=== PATIENT | female | born 2005 | race Caucasian/White ===

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

== ENCOUNTER 2023-01-24 23:26 | Emergency (ER) | payer MEDICAID, OTHER ==
[~2023-01-24] VITALS: Ht 160 cm; Wt 83.0 kg
[2023-01-24 23:26] VITALS: BP 152/87
[~2023-01-24 23:26] MED LIST changes: +BUSP5TA PO; +SERT50TA29 PO; +TRAZ-252 PO
== END 2023-01-25 00:06 | disposition left against medical advice (07) ==
LOC: M ED 23:26
DX: Z53.21 Procedure and treatment not carried out due to patient leaving prior to being seen by health care provider (principal)

== ENCOUNTER 2023-01-26 17:20 | Emergency (ER) | payer OTHER ==
[~2023-01-26] VITALS: Ht 160 cm; Wt 81.4 kg
[2023-01-26] MEDS ORDERED: METOCLOPRAMIDE INJ 10MG/2ML VIAL IV ONE (18:25)
[2023-01-26] MEDS ORDERED: NS 1,000 ML IV ONE (18:25)
[2023-01-26 19:29] LABS: BASO % 0.2 % (0.0-1.0); EOS % 0.1 % (0.0-3.0); LYMPH # 1.5 10^3/uL (1.5-5.0); LYMPH % 7.4 % (24.0-44.0); MEAN CORPUSCULAR HEMOGLOBIN 28.2 pg (27.0-33.0); MEAN CORPUSCULAR HGB CONC 33.3 g/dl (32.0-36.5); MEAN CORPUSCULAR VOLUME 84.7 fl (80.0-96.0); MONO # 0.9 10^3/uL (0.0-0.8); MONO % 4.7 % (2.0-8.0); NEUTROPHILS # 17.2 10^3/uL (1.5-8.5); NEUTROPHILS % 87.1 % (36.0-66.0); PLATELET COUNT, AUTOMATED 297 10^3/uL (150-450); RED BLOOD COUNT 4.25 10^6/uL (4.00-5.40); WHITE BLOOD COUNT 19.7 10^3/uL (4.0-10.0)
[2023-01-26 20:20] LABS: HCG, SERUM QUANTITATIVE < 2.6 MIU/ML (<4.2)
[2023-01-26 20:21] LABS: ALBUMIN 3.1 G/DL (3.2-5.2); ALKALINE PHOSPHATASE 112 U/L (46-116); ALT/SGPT 22 U/L (7.0-40); AST/SGOT 15 U/L (<34); BILIRUBIN,DIRECT 0.2 MG/DL (<0.4); BILIRUBIN,TOTAL 0.3 MG/DL (0.3-1.2); BLOOD UREA NITROGEN 6 MG/DL (9-23); CALCIUM LEVEL 8.7 MG/DL (8.5-10.1); CARBON DIOXIDE LEVEL 23 MMOL/L (20-31); CHLORIDE LEVEL 102 MMOL/L (98-107); CREATININE FOR GFR 0.65 MG/DL (0.55-1.30); GLUCOSE, FASTING 78 MG/DL (60-100); LIPASE 19 U/L (12-53); POTASSIUM SERUM 3.5 MMOL/L (3.5-5.1); SODIUM LEVEL 137 MMOL/L (136-145); TOTAL PROTEIN 6.8 G/DL (5.7-8.2)
[2023-01-26 20:34] LABS: RSV AMPLIFICATION NEGATIVE (NEGATIVE)
[2023-01-26] MEDS ORDERED: ISOVUE-370 76% 100ML VIAL As Ordered ONE (21:02)
[2023-01-26 21:24] LABS: GC DNA AMPLIFICATION NEGATIVE (NEGATIVE)
[2023-01-26 22:01] VITALS: BP 132/66
== END 2023-01-26 22:33 | disposition home or self-care (01) ==
LOC: M ED 17:20
DX: J18.9 Pneumonia, unspecified organism (principal); N39.0 Urinary tract infection, site not specified; F41.9 Anxiety disorder, unspecified; F32.9 Major depressive disorder, single episode, unspecified; Z79.899 Other long term (current) drug therapy
CPT/HCPCS: 71046; 74177; 76801; 76817; 80048; 80076; 81001; 83605; 83690; 84702; 85025; 87040; 87086; 87631; 87810; 87850; 93976; 96361; 96374; 99284; J2765; Q9967

== ENCOUNTER → 2023-03-09 | Outpatient (REF) | payer OTHER | LOC: M LAB REF 15:25 | PROVIDERS: ATTEND Pediatrics | DX: J02.9 Acute pharyngitis, unspecified (principal) ==

== ENCOUNTER → 2023-08-27 | Outpatient (REF) | payer OTHER ==
[~2023-08-27] MED LIST changes: -MEDR150I10; +MEDR150I13
== END ==
LOC: M LAB REF 10:42
PROVIDERS: ATTEND Physician Assistant
DX: B34.9 Viral infection, unspecified (principal)

== ENCOUNTER → 2023-10-14 | Outpatient (REF) | payer OTHER ==
[2023-10-14 20:19] LABS: CHLAMYDIA DNA AMPLIFICATION NEGATIVE (NEGATIVE); GC DNA AMPLIFICATION NEGATIVE (NEGATIVE)
== END ==
LOC: M LAB REF 18:00
PROVIDERS: ATTEND Physician Assistant
DX: R30.0 Dysuria (principal)

== ENCOUNTER → 2023-10-17 | Outpatient (REF) | payer OTHER ==
[~2023-10-17] MED LIST changes: +ESCITALOPRAM; +LEXA1TAB PO; +PHEN-501
[2023-10-17 18:31] LABS: APPEARANCE, URINE CLEAR (CLEAR); BACTERIA, URINE AUTO NEGATIVE (NEGATIVE); BILIRUBIN, URINE AUTO NEGATIVE (NEGATIVE); BLOOD, URINE BLOOD NEGATIVE (NEGATIVE); COLOR, URINE AMBER (YELLOW); GLUCOSE, URINE (UA) AUTO NEGATIVE (NEGATIVE); KETONE, URINE AUTO TRACE mg/dL (NEGATIVE); LEUKOCYTE ESTERASE, URINE AUTO NEGATIVE (NEGATIVE); MUCUS, URINE SMALL (NEGATIVE); NITRITE, URINE AUTO NEGATIVE (NEGATIVE); PROTEIN, URINE AUTO 1+ mg/dL (NEGATIVE); RBC, URINE AUTO 1 /HPF (0-3); SPECIFIC GRAVITY URINE AUTO 1.029 (1.002-1.035); SQUAMOUS EPITHELIAL CELL UR AU 1 /HPF (0-6); WBC, URINE AUTO 2 /HPF (0-3)
== END ==
LOC: M LAB REF 16:55
PROVIDERS: ATTEND Pediatrics
DX: R30.0 Dysuria (principal)

== ENCOUNTER 2023-10-19 11:03 | Inpatient (IN) | payer MEDICAID, OTHER ==
[~2023-10-19] VITALS: Ht 165.1 cm; Wt 98.5 kg
[~2023-10-19 11:03] MED LIST changes: -ESCITALOPRAM; -LEXA1TAB PO; -PHEN-501
[2023-10-19] MEDS ORDERED: PHEN-501 (11:15)
[2023-10-19] MEDS ORDERED: ESCITALOPRAM (11:15)
[2023-10-19 12:20] LABS: HEMATOCRIT 39.7 % (36.0-47.0); HEMOGLOBIN 13.7 g/dl (12.0-15.5); MEAN CORPUSCULAR HGB CONC 34.5 g/dl (32.0-36.5); MEAN CORPUSCULAR VOLUME 86.9 fl (80.0-96.0); PLATELET COUNT, AUTOMATED 278 10^3/uL (150-450); RED BLOOD COUNT 4.57 10^6/uL (4.00-5.40); WHITE BLOOD COUNT 13.3 10^3/uL (4.0-10.0)
[2023-10-19 12:50] LABS: ETHYL ALCOHOL (ETHANOL) 0.008 % (0.000-0.010)
[2023-10-19 12:52] LABS: ALBUMIN 4.1 G/DL (3.2-5.2); ALKALINE PHOSPHATASE 79 U/L (46-116); ALT/SGPT 40 U/L (7.0-40); AST/SGOT 15 U/L (<34); BILIRUBIN,DIRECT 0.1 MG/DL (<0.4); BILIRUBIN,TOTAL 0.3 MG/DL (0.3-1.2); BLOOD UREA NITROGEN 9 MG/DL (9-23); CALCIUM LEVEL 9.2 MG/DL (8.5-10.1); CARBON DIOXIDE LEVEL 20 MMOL/L (20-31); CHLORIDE LEVEL 111 MMOL/L (98-107); CREATININE FOR GFR 0.55 MG/DL (0.55-1.30); GLUCOSE, FASTING 105 MG/DL (60-100); POTASSIUM SERUM 3.4 MMOL/L (3.5-5.1); SALICYLATE LEVEL < 3.0 MG/DL (<30); SODIUM LEVEL 143 MMOL/L (136-145); TOTAL PROTEIN 7.4 G/DL (5.7-8.2)
[2023-10-19 12:54] LABS: THYROID STIMULATING HORMONE 0.268 uIU/ML (0.48-4.17)
[2023-10-19 13:10] LABS: HCG, SERUM QUALITATIVE POSITIVE (NEGATIVE)
[2023-10-19 13:44] LABS: CK-MB VALUE MASS < 1.0 NG/ML (<3.6); CPK CREATINE PHOSPHOKINASE < 15 U/L (34-145)
[2023-10-19 13:56] LABS: HCG, SERUM QUANTITATIVE 535.1 MIU/ML (<4.2)
[2023-10-19] MEDS ORDERED: ONDANSETRON 4MG 2ML VIAL IV ONE (14:10)
[2023-10-19 14:18] LABS: AMPHETAMINES LEVEL URINE NEGATIVE (NEGATIVE); BARBITURATES URINE NEGATIVE (NEGATIVE); COCAINE METABOLITE URINE NEGATIVE (NEGATIVE); METHADONE URINE NEGATIVE (NEGATIVE); OPIATES URINE NEGATIVE (NEGATIVE); PHENCYCLIDINE URINE NEGATIVE (NEGATIVE)
[2023-10-19 14:19] LABS: BENZODIAZEPINES URINE POSITIVE (NEGATIVE); CANNABINOIDS URINE POSITIVE (NEGATIVE)
[2023-10-19] MEDS ORDERED: ISOVUE-370 76% 100ML VIAL As Ordered ONE (14:50)
[2023-10-19 15:30] LABS: CHLAMYDIA DNA AMPLIFICATION NEGATIVE (NEGATIVE); GC DNA AMPLIFICATION NEGATIVE (NEGATIVE)
[2023-10-19] MEDS ORDERED: LORazepam 2 MG/ML 1ML VIAL IV STA (17:45)
[2023-10-19] MEDS ORDERED: IBUPROFEN 400MG TAB PO PRN (18:35)
[2023-10-19] MEDS ORDERED: traZODone 50 MG TAB PO PRN (18:35)
[2023-10-19] MEDS ORDERED: MOM 30ML SUSPENSION UDC PO PRN (18:35)
[2023-10-19] MEDS ORDERED: ACETAMINOPHEN TAB 650MG DOSE (2X325MG) PO PRN (18:35)
[2023-10-19] MEDS ORDERED: MAALOX 30 ML SUSP *UDC PO PRN (18:35)
[2023-10-19] MEDS ORDERED: MED REC IN PROGRESS XX SCH (19:00)
[2023-10-19] MEDS ORDERED: LEXA1TAB PO (19:59)
[2023-10-19] MEDS ORDERED: HOME MED LIST COMPLETE! XX SCH (20:05)
[2023-10-19] MEDS: diphenhydrAMINE 25MG CAP PO PRN (23:15)
[2023-10-19 23:37] VITALS: BP 134/62; TEMP 98.9; O2SAT 98
[2023-10-20] MEDS: hydrOXYzine 50 MG TAB PO PRN ×3 (00:44→15:39)
[2023-10-20] MEDS: ONDANSETRON 4MG TAB PO PRN ×3 (00:44→21:18)
[2023-10-20 06:32] VITALS: BP 113/56; TEMP 98.3; O2SAT 95
[2023-10-20] MEDS: clonazePAM 0.5 MG TAB PO SCH ×2 (12:43→21:18)
[2023-10-20] MEDS: NICOTINE 21MG/24HR 1 EA TRANSDERMAL TD SCH (14:35)
[2023-10-20 16:19] VITALS: BP 127/73; TEMP 98.4; O2SAT 96
[2023-10-20] MEDS: PRAZOSIN 1 MG CAP PO SCH (21:20)
[2023-10-20] MEDS: traZODone 50 MG TAB PO PRN (21:28)
[2023-10-21] MEDS: hydrOXYzine 50 MG TAB PO PRN ×3 (05:40→21:08)
[2023-10-21 05:51] VITALS: BP 124/66; TEMP 97.8; O2SAT 97
[2023-10-21 06:49] VITALS: BP 130/62; TEMP 97.6; O2SAT 98
[2023-10-21] MEDS: NICOTINE 21MG/24HR 1 EA TRANSDERMAL TD SCH (09:00)
[2023-10-21] MEDS: clonazePAM 0.5 MG TAB PO SCH ×2 (09:52→21:08)
[2023-10-21] MEDS: ESCITALOPRAM OXALATE 10 MG TAB (LEXAPRO) PO SCH (09:52)
[2023-10-21] MEDS ORDERED: clonazePAM 0.5 MG TAB PO PRN (14:10)
[2023-10-21 18:21] VITALS: TEMP 98.7
[2023-10-21] MEDS: traZODone 50 MG TAB PO PRN (21:08)
[2023-10-21] MEDS: PRAZOSIN 1 MG CAP PO SCH (21:12)
[2023-10-21] MEDS: ONDANSETRON 4MG TAB PO PRN (21:19)
[2023-10-21 21:36] VITALS: BP 122/68
[2023-10-21] MEDS: diphenhydrAMINE 25MG CAP PO PRN (22:09)
[2023-10-22] MEDS: NICOTINE 21MG/24HR 1 EA TRANSDERMAL TD SCH (09:00)
[2023-10-22] MEDS: clonazePAM 0.5 MG TAB PO SCH ×2 (09:18→21:10)
[2023-10-22] MEDS: ESCITALOPRAM OXALATE 10 MG TAB (LEXAPRO) PO SCH (09:18)
[2023-10-22] MEDS: ONDANSETRON 4MG TAB PO PRN (09:20)
[2023-10-22] MEDS: hydrOXYzine 50 MG TAB PO PRN (09:21)
[2023-10-22] MEDS: diphenhydrAMINE 25MG CAP PO PRN (12:40)
[2023-10-22 15:16] VITALS: BP 135/83; TEMP 98
[2023-10-22] MEDS ORDERED: dexAMETHasone 20MG/5ML VIAL IM ONE (15:20)
[2023-10-22] MEDS ORDERED: HALOPERIDOL 5MG/ML 1ML VIAL IM ONE (15:20)
[2023-10-22 15:52] LABS: BASO % 0.3 % (0.0-1.0); EOS % 0.4 % (0.0-3.0); HEMATOCRIT 42.3 % (36.0-47.0); HEMOGLOBIN 14.8 g/dl (12.0-15.5); LYMPH # 1.7 10^3/uL (1.5-5.0); MEAN CORPUSCULAR VOLUME 85.6 fl (80.0-96.0); MONO # 0.4 10^3/uL (0.0-0.8); MONO % 4.2 % (2.0-8.0); NEUTROPHILS % 77.9 % (36.0-66.0); PLATELET COUNT, AUTOMATED 287 10^3/uL (150-450); RED BLOOD COUNT 4.94 10^6/uL (4.00-5.40); WHITE BLOOD COUNT 10.2 10^3/uL (4.0-10.0)
[2023-10-22 16:09] LABS: BLOOD UREA NITROGEN 11 MG/DL (9-23); CALCIUM LEVEL 9.1 MG/DL (8.5-10.1); CARBON DIOXIDE LEVEL 16 MMOL/L (20-31); CHLORIDE LEVEL 103 MMOL/L (98-107); CREATININE FOR GFR 0.58 MG/DL (0.55-1.30); GLUCOSE, FASTING 62 MG/DL (60-100); POTASSIUM SERUM 3.9 MMOL/L (3.5-5.1); SODIUM LEVEL 137 MMOL/L (136-145)
[2023-10-22 16:11] LABS: FREE T4 1.25 NG/DL (0.83-1.43); TOTAL T3 97.3 NG/DL (86.0-192.0)
[2023-10-22] MEDS ORDERED: ONDANSETRON 4MG 2ML VIAL IM SCH (17:00)
[2023-10-22 17:29] LABS: LIPASE 29 U/L (12-53)
[2023-10-22] MEDS ORDERED: PANTOPRAZOLE 20 MG TAB PO SCH (21:00)
[2023-10-22 21:10] VITALS: BP 135/77
[2023-10-22] MEDS: PRAZOSIN 1 MG CAP PO SCH (21:10)
== END 2023-10-22 21:20 | disposition still patient (30) | DRG 756 ==
LOC: M ED 11:03 → M ED INP 18:35 → M PSY 22:27
PROVIDERS: ADMIT Student in an Organized Health Care Education/Training Program; ATTEND Student in an Organized Health Care Education/Training Program
DX: F41.1 Generalized anxiety disorder (principal); F32.A Depression, unspecified; R11.10 Vomiting, unspecified; F43.10 Post-traumatic stress disorder, unspecified; G47.00 Insomnia, unspecified; F41.0 Panic disorder [episodic paroxysmal anxiety]; F17.200 Nicotine dependence, unspecified, uncomplicated; R19.7 Diarrhea, unspecified; Z79.899 Other long term (current) drug therapy; Z20.822 Contact with and (suspected) exposure to COVID-19; Z91.410 Personal history of adult physical and sexual abuse

== ENCOUNTER 2023-10-22 15:45 | Observation (INO) | payer MEDICAID ==
[~2023-10-22] VITALS: Ht 165.1 cm; Wt 93.0 kg
[2023-10-22] MEDS: PANTOPRAZOLE 40MG VIAL IV SCH (09:00)
[~2023-10-22 15:45] MED LIST changes: +ESCITALOPRAM; +LEXA1TAB PO; +PHEN-501
[2023-10-22] MEDS ORDERED: LR 1,000 ML IV ONE (16:30)
[2023-10-22] MEDS: LR 1,000 ML IV SCH (16:30)
[2023-10-22] MEDS: clonazePAM 0.5 MG TAB PO SCH (21:00)
[2023-10-22] MEDS: PRAZOSIN 1 MG CAP PO SCH (21:00)
[2023-10-22 21:26] VITALS: BP 130/70; TEMP 97.7; O2SAT 98
[2023-10-22] MEDS: ONDANSETRON 4MG 2ML VIAL IV SCH (22:46)
[2023-10-22] MEDS: traZODone 50 MG TAB PO PRN (22:47)
[2023-10-23] MEDS: LR 1,000 ML IV SCH ×2 (00:20→08:18)
[2023-10-23] MEDS ORDERED: diphenhydrAMINE 25MG CAP PO ONE (01:00)
[2023-10-23] MEDS ORDERED: METOCLOPRAMIDE INJ 10MG/2ML VIAL IV ONE (04:00)
[2023-10-23] MEDS: ONDANSETRON 4MG 2ML VIAL IV SCH (05:42)
[2023-10-23 06:10] VITALS: BP 139/75; TEMP 97.9; O2SAT 98
[2023-10-23 06:55] LABS: HEMATOCRIT 37.4 % (36.0-47.0); HEMOGLOBIN 12.9 g/dl (12.0-15.5); MEAN CORPUSCULAR HEMOGLOBIN 30.1 pg (27.0-33.0); MEAN CORPUSCULAR HGB CONC 34.5 g/dl (32.0-36.5); MEAN CORPUSCULAR VOLUME 87.2 fl (80.0-96.0); PLATELET COUNT, AUTOMATED 288 10^3/uL (150-450); RED BLOOD COUNT 4.29 10^6/uL (4.00-5.40); WHITE BLOOD COUNT 7.9 10^3/uL (4.0-10.0)
[2023-10-23 07:22] LABS: BLOOD UREA NITROGEN 8 MG/DL (9-23); CALCIUM LEVEL 9.1 MG/DL (8.5-10.1); CARBON DIOXIDE LEVEL 15 MMOL/L (20-31); CHLORIDE LEVEL 107 MMOL/L (98-107); CREATININE FOR GFR 0.59 MG/DL (0.55-1.30); GLUCOSE, FASTING 81 MG/DL (60-100); POTASSIUM SERUM 4.3 MMOL/L (3.5-5.1); SODIUM LEVEL 138 MMOL/L (136-145)
[2023-10-23] MEDS: PANTOPRAZOLE 40MG VIAL IV SCH (08:18)
[2023-10-23] MEDS: ESCITALOPRAM OXALATE 10 MG TAB (LEXAPRO) PO SCH (08:18)
[2023-10-23] MEDS: ENOXAPARIN 40MG/0.4ML SYRINGE (J1650 PER 10MG) SC SCH (08:18)
[2023-10-23] MEDS: clonazePAM 0.5 MG TAB PO SCH ×2 (08:19→19:51)
[2023-10-23] MEDS: D5W/0.45% SODIUM CHLORIDE 1,000 ML IV SCH ×2 (11:47→22:12)
[2023-10-23] MEDS: ONDANSETRON 4MG 2ML VIAL IV PRN ×2 (11:47→19:58)
[2023-10-23 14:00] VITALS: BP 140/70; TEMP 98.6; O2SAT 97
[2023-10-23 16:28] LABS: BLOOD UREA NITROGEN 7 MG/DL (9-23); CALCIUM LEVEL 8.6 MG/DL (8.5-10.1); CARBON DIOXIDE LEVEL 20 MMOL/L (20-31); CHLORIDE LEVEL 107 MMOL/L (98-107); CREATININE FOR GFR 0.55 MG/DL (0.55-1.30); GLUCOSE, FASTING 94 MG/DL (60-100); POTASSIUM SERUM 3.3 MMOL/L (3.5-5.1); SODIUM LEVEL 138 MMOL/L (136-145)
[2023-10-23] MEDS ORDERED: POTASSIUM CHLORIDE 10MEQ SR TABLET PO ONE (16:35)
[2023-10-23] MEDS: PRAZOSIN 1 MG CAP PO SCH (19:51)
[2023-10-23] MEDS: traZODone 50 MG TAB PO PRN (21:59)
[2023-10-23 22:00] VITALS: BP 139/65; TEMP 98; O2SAT 96
[2023-10-24] MEDS: ONDANSETRON 4MG 2ML VIAL IV PRN ×3 (02:41→15:28)
[2023-10-24 06:00] VITALS: BP 147/91; TEMP 97.3; O2SAT 99
[2023-10-24 07:53] LABS: BLOOD UREA NITROGEN 7 MG/DL (9-23); CALCIUM LEVEL 8.8 MG/DL (8.5-10.1); CARBON DIOXIDE LEVEL 24 MMOL/L (20-31); CHLORIDE LEVEL 110 MMOL/L (98-107); CREATININE FOR GFR 0.66 MG/DL (0.55-1.30); GLUCOSE, FASTING 84 MG/DL (60-100); POTASSIUM SERUM 3.5 MMOL/L (3.5-5.1); SODIUM LEVEL 142 MMOL/L (136-145)
[2023-10-24] MEDS: ESCITALOPRAM OXALATE 10 MG TAB (LEXAPRO) PO SCH ×2 (09:00→09:21)
[2023-10-24] MEDS: ENOXAPARIN 40MG/0.4ML SYRINGE (J1650 PER 10MG) SC SCH ×2 (09:00→09:21)
[2023-10-24] MEDS: clonazePAM 0.5 MG TAB PO SCH ×2 (09:21→22:54)
[2023-10-24] MEDS: LIDOCAINE 5% (LIDODERM) PATCH TD SCH (09:21)
[2023-10-24] MEDS: PANTOPRAZOLE 40MG VIAL IV SCH (09:21)
[2023-10-24 10:02] VITALS: BP 148/88; O2SAT 96
[2023-10-24] MEDS ORDERED: LORazepam 2 MG/ML 1ML VIAL IV STA (11:00)
[2023-10-24 14:12] VITALS: BP 129/66; TEMP 97; O2SAT 97
[2023-10-24] MEDS ORDERED: clonazePAM 0.5 MG TAB PO PRN (15:05)
[2023-10-24] MEDS: GASTROGRAFIN SOLUTION 30ML PO SCH ×2 (17:06→17:34)
[2023-10-24] MEDS ORDERED: ISOVUE-370 76% 100ML VIAL As Ordered ONE (18:11)
[2023-10-24 20:34] VITALS: BP 141/84; TEMP 97.7; O2SAT 98
[2023-10-24] MEDS ORDERED: ONDANSETRON 4MG ORAL DISINTEGRATING TAB PO PRN (21:00)
[2023-10-24 22:54] VITALS: BP 141/84
[2023-10-24] MEDS: PRAZOSIN 1 MG CAP PO SCH (22:54)
[2023-10-24] MEDS: traZODone 50 MG TAB PO PRN (22:54)
[2023-10-25 05:37] LABS: BASO % 0.5 % (0.0-1.0); EOS # 0.2 10^3/uL (0.0-0.5); EOS % 2.2 % (0.0-3.0); HEMATOCRIT 36.1 % (36.0-47.0); HEMOGLOBIN 12.7 g/dl (12.0-15.5); LYMPH % 45.8 % (24.0-44.0); MEAN CORPUSCULAR HEMOGLOBIN 30.2 pg (27.0-33.0); MEAN CORPUSCULAR HGB CONC 35.2 g/dl (32.0-36.5); MONO # 0.7 10^3/uL (0.0-0.8); MONO % 8.1 % (2.0-8.0); NEUTROPHILS # 3.8 10^3/uL (1.5-8.5); NEUTROPHILS % 43.2 % (36.0-66.0); PLATELET COUNT, AUTOMATED 257 10^3/uL (150-450); WHITE BLOOD COUNT 8.7 10^3/uL (4.0-10.0)
[2023-10-25 05:57] LABS: BLOOD UREA NITROGEN 8 MG/DL (9-23); CALCIUM LEVEL 8.6 MG/DL (8.5-10.1); CARBON DIOXIDE LEVEL 26 MMOL/L (20-31); CHLORIDE LEVEL 109 MMOL/L (98-107); CREATININE FOR GFR 0.64 MG/DL (0.55-1.30); GLUCOSE, FASTING 84 MG/DL (60-100); POTASSIUM SERUM 3.1 MMOL/L (3.5-5.1); SODIUM LEVEL 142 MMOL/L (136-145)
[2023-10-25 06:19] VITALS: BP 135/82; TEMP 97.4; O2SAT 99
[2023-10-25] MEDS ORDERED: POTASSIUM CHLORIDE 10MEQ SR TABLET PO ONE ×2 (08:00→12:00)
[2023-10-25] MEDS ORDERED: KCL 10MEQ/100ML SWI (KRUN) 10 MEQ in IV 1 EA IV SCH (08:00)
[2023-10-25] MEDS: ENOXAPARIN 40MG/0.4ML SYRINGE (J1650 PER 10MG) SC SCH (08:32)
[2023-10-25] MEDS: ESCITALOPRAM OXALATE 10 MG TAB (LEXAPRO) PO SCH (08:32)
[2023-10-25] MEDS: clonazePAM 0.5 MG TAB PO SCH (08:33)
[2023-10-25] MEDS: PANTOPRAZOLE 40MG VIAL IV SCH (08:35)
[2023-10-25] MEDS: LIDOCAINE 5% (LIDODERM) PATCH TD SCH (08:37)
[2023-10-25] MEDS ORDERED: CLON0.5T2 PO (11:23)
[2023-10-25] MEDS ORDERED: ONDA4TAB6 PO (11:23)
[2023-10-25] MEDS ORDERED: MINI1CAP PO (11:24)
[2023-10-25] MEDS ORDERED: PROT1TAB2 PO (11:24)
[2023-10-25 14:00] VITALS: BP 158/86; TEMP 97.5; O2SAT 98
[2023-10-26] MEDS ORDERED: TRAZ-252 PO ×2 (09:29→10:48)
[2023-10-26] MEDS ORDERED: PRAZ1CAP PO ×2 (09:29→10:48)
[2023-10-26] MEDS ORDERED: CLON0.5T2 PO ×2 (09:29→10:48)
[2023-10-26] MEDS ORDERED: ONDA4TAB6 PO (09:29)
[2023-10-26] MEDS ORDERED: HYDR-3363 PO (09:29)
[2023-10-26] MEDS ORDERED: LEXA1TAB PO (10:48)
[2023-10-26] MEDS ORDERED: HYDR50TA70 PO (10:48)
== END 2023-10-25 14:35 ==
LOC: M ED INP 16:29 → INTOOBSV 16:29 → M MS5PR 21:20 → M MS4PR 10-23 20:15
PROVIDERS: ADMIT Internal Medicine; ATTEND Internal Medicine
DX: R11.2 Nausea with vomiting, unspecified (principal); E87.21 Acute metabolic acidosis; D72.829 Elevated white blood cell count, unspecified; F41.9 Anxiety disorder, unspecified; F32.A Depression, unspecified; F43.10 Post-traumatic stress disorder, unspecified; F12.10 Cannabis abuse, uncomplicated; Z79.899 Other long term (current) drug therapy
CPT/HCPCS: 36415; 74018; 74177; 80048; 83735; 85025; 85027; 96361; 96374; 96375; 96376; C9113; J1650; J2060; J2405; J2765; Q9963; Q9967

== ENCOUNTER 2023-10-25 13:01 | Inpatient (IN) | payer MEDICAID ==
[~2023-10-25] VITALS: Ht 165.1 cm; Wt 92.7 kg
[~2023-10-25 13:01] MED LIST changes: +CLON0.5T2 PO; +MINI1CAP PO; +PROT1TAB2 PO
[2023-10-25] MEDS ORDERED: ACETAMINOPHEN TAB 650MG DOSE (2X325MG) PO PRN (14:00)
[2023-10-25] MEDS ORDERED: diphenhydrAMINE 25MG CAP PO PRN (14:00)
[2023-10-25] MEDS ORDERED: IBUPROFEN 400MG TAB PO PRN (14:00)
[2023-10-25] MEDS ORDERED: MAALOX 30 ML SUSP *UDC PO PRN (14:00)
[2023-10-25] MEDS ORDERED: traZODone 50 MG TAB PO PRN (14:00)
[2023-10-25] MEDS ORDERED: MOM 30ML SUSPENSION UDC PO PRN (14:00)
[2023-10-25 14:35] VITALS: BP 158/86; TEMP 97.5; O2SAT 98
[2023-10-25 17:27] VITALS: BP 131/72; TEMP 97.4
[2023-10-25] MEDS ORDERED: hydrOXYzine 50 MG TAB PO PRN (20:45)
[2023-10-25] MEDS ORDERED: PRAZOSIN 1 MG CAP PO SCH (21:00)
[2023-10-25] MEDS: clonazePAM 0.5 MG TAB PO SCH (21:04)
[2023-10-25 21:05] VITALS: BP 144/80
[2023-10-26 06:53] VITALS: BP 145/75; TEMP 97.3; O2SAT 97
[2023-10-26] MEDS: clonazePAM 0.5 MG TAB PO SCH ×2 (09:00→09:48)
[2023-10-26] MEDS ORDERED: ESCITALOPRAM OXALATE 10 MG TAB (LEXAPRO) PO SCH (09:00)
[2023-10-26] MEDS ORDERED: PRAZ1CAP PO ×2 (09:29→10:48)
[2023-10-26] MEDS ORDERED: TRAZ-252 PO ×2 (09:29→10:48)
[2023-10-26] MEDS ORDERED: HYDR-3363 PO (09:29)
[2023-10-26] MEDS ORDERED: ONDA4TAB6 PO (09:29)
[2023-10-26] MEDS ORDERED: CLON0.5T2 PO ×2 (09:29→10:48)
[2023-10-26] MEDS ORDERED: HOME MED LIST COMPLETE! XX SCH (09:30)
[2023-10-26] MEDS ORDERED: LEXA1TAB PO (10:48)
[2023-10-26] MEDS ORDERED: HYDR50TA70 PO (10:48)
== END 2023-10-26 12:50 | disposition home or self-care (01) | DRG 755 ==
LOC: M PSY 15:14
PROVIDERS: ADMIT Student in an Organized Health Care Education/Training Program; ATTEND Student in an Organized Health Care Education/Training Program
DX: F43.10 Post-traumatic stress disorder, unspecified (principal); F32.9 Major depressive disorder, single episode, unspecified; F41.0 Panic disorder [episodic paroxysmal anxiety]; F41.1 Generalized anxiety disorder; G47.00 Insomnia, unspecified; F40.10 Social phobia, unspecified; F17.290 Nicotine dependence, other tobacco product, uncomplicated; Z91.414 Personal history of adult intimate partner abuse; Z79.899 Other long term (current) drug therapy

== ENCOUNTER 2024-01-13 18:35 | Emergency (ER) | payer MEDICAID, OTHER ==
[~2024-01-13 18:35] MED LIST changes: +HYDR-3363 PO; +HYDR50TA70 PO; +PRAZ1CAP PO
[2024-01-13 20:36] LABS: BASO # 0.1 10^3/uL (0.0-0.2); BASO % 0.4 % (0.0-1.0); EOS # 0.3 10^3/uL (0.0-0.5); EOS % 1.8 % (0.0-3.0); HEMOGLOBIN 15.9 g/dl (12.0-15.5); LYMPH # 2.5 10^3/uL (1.5-5.0); LYMPH % 13.6 % (24.0-44.0); MEAN CORPUSCULAR HEMOGLOBIN 29.9 pg (27.0-33.0); MEAN CORPUSCULAR HGB CONC 33.1 g/dl (32.0-36.5); MEAN CORPUSCULAR VOLUME 90.4 fl (80.0-96.0); MONO % 5.4 % (2.0-8.0); NEUTROPHILS # 14.2 10^3/uL (1.5-8.5); NEUTROPHILS % 78.3 % (36.0-66.0); PLATELET COUNT, AUTOMATED 294 10^3/uL (150-450); RED BLOOD COUNT 5.31 10^6/uL (4.00-5.40); WHITE BLOOD COUNT 18.1 10^3/uL (4.0-10.0)
[2024-01-13] MEDS ORDERED: CEPH500C PO (22:37)
[2024-01-13 22:58] VITALS: BP 138/66; TEMP 97.7; O2SAT 98
== END 2024-01-13 23:00 | disposition home or self-care (01) ==
LOC: M ED 18:35
DX: O20.0 Threatened abortion (principal); O23.41 Unspecified infection of urinary tract in pregnancy, first trimester; F17.200 Nicotine dependence, unspecified, uncomplicated; F12.10 Cannabis abuse, uncomplicated; F10.10 Alcohol abuse, uncomplicated; Z3A.01 Less than 8 weeks gestation of pregnancy; Z79.2 Long term (current) use of antibiotics; Z79.83 Long term (current) use of bisphosphonates; Z79.899 Other long term (current) drug therapy

== ENCOUNTER → 2024-06-07 | Outpatient (REF) | payer OTHER ==
[~2024-06-07] MED LIST changes: +CEPH500C PO; +ONDA-282 PO; -ONDA4TAB6 PO
== END ==
LOC: M LAB REF 12:42
PROVIDERS: ATTEND Physician Assistant
DX: B34.9 Viral infection, unspecified (principal)

== ENCOUNTER 2024-10-07 12:15 | Emergency (ER) | payer OTHER ==
[2024-10-07 12:21] VITALS: TEMP 97
[2024-10-07 13:47] LABS: HEMOGLOBIN 16.8 g/dl (12.0-15.5); MEAN CORPUSCULAR HEMOGLOBIN 29.2 pg (27.0-33.0); MEAN CORPUSCULAR HGB CONC 33.6 g/dl (32.0-36.5); MEAN CORPUSCULAR VOLUME 86.8 fl (80.0-96.0); PLATELET COUNT, AUTOMATED 393 10^3/uL (150-450); RED BLOOD COUNT 5.76 10^6/uL (4.00-5.40); WHITE BLOOD COUNT 24.6 10^3/uL (4.0-10.0)
[2024-10-07 14:18] LABS: ETHYL ALCOHOL (ETHANOL) 0.005 % (0.000-0.010)
[2024-10-07 14:19] LABS: SALICYLATE LEVEL < 3.0 MG/DL (<30)
[2024-10-07 14:20] LABS: ALKALINE PHOSPHATASE 124 U/L (35-104); ALT/SGPT 70 U/L (7.0-40); AST/SGOT 43 U/L (<34); BILIRUBIN,DIRECT 0.2 MG/DL (<0.4); BILIRUBIN,TOTAL 0.5 MG/DL (0.3-1.2); BLOOD UREA NITROGEN 9 MG/DL (9-23); CALCIUM LEVEL 10.9 MG/DL (8.5-10.1); CARBON DIOXIDE LEVEL 19 MMOL/L (20-31); CHLORIDE LEVEL 104 MMOL/L (98-107); CREATININE FOR GFR 0.81 MG/DL (0.55-1.30); GLOMERULAR FILTRATION RATE > 60.0 (>60); GLUCOSE, FASTING 128 MG/DL (60-100); HCG, SERUM QUALITATIVE NEGATIVE (NEGATIVE); POTASSIUM SERUM 4.6 MMOL/L (3.5-5.1); SODIUM LEVEL 142 MMOL/L (136-145); TOTAL PROTEIN 9.1 G/DL (5.7-8.2)
[2024-10-07 14:22] LABS: THYROID STIMULATING HORMONE 0.971 uIU/ML (0.55-4.78)
[2024-10-07 14:28] LABS: AMPHETAMINES LEVEL URINE NEGATIVE (NEGATIVE); BARBITURATES URINE NEGATIVE (NEGATIVE); COCAINE METABOLITE URINE NEGATIVE (NEGATIVE); METHADONE URINE NEGATIVE (NEGATIVE); OPIATES URINE NEGATIVE (NEGATIVE); PHENCYCLIDINE URINE NEGATIVE (NEGATIVE)
[2024-10-07 14:30] LABS: BENZODIAZEPINES URINE POSITIVE (NEGATIVE); CANNABINOIDS URINE POSITIVE (NEGATIVE)
[2024-10-07] MEDS: NS (Normal Saline) 0.9% 1,000 ML IV ONE (15:49)
[2024-10-07] MEDS: HALOPERIDOL LACTATE 5MG/ML VIAL IV ONE (15:49)
[2024-10-07 16:17] VITALS: BP 115/54
[2024-10-07 17:30] VITALS: O2SAT 99
== END 2024-10-07 18:03 | disposition left against medical advice (07) ==
LOC: M ED 12:15
DX: F43.0 Acute stress reaction (principal); F12.188 Cannabis abuse with other cannabis-induced disorder; Z53.9 Procedure and treatment not carried out, unspecified reason; F32.A Depression, unspecified; F41.9 Anxiety disorder, unspecified; Z79.899 Other long term (current) drug therapy
CPT/HCPCS: 80048; 80076; 80143; 80307; 82077; 84443; 84703; 85027; 93005; 93041; 94760; 96361; 96374; 99284; J1630

== ENCOUNTER 2024-12-15 15:43 | Emergency (ER) | payer OTHER ==
[~2024-12-15] VITALS: Ht 167.6 cm; Wt 116.6 kg
[2024-12-15 15:52] VITALS: TEMP 97
[2024-12-15 17:09] LABS: BASO # 0.1 10^3/uL (0.0-0.2); BASO % 0.4 % (0.0-1.0); EOS % 0.1 % (0.0-3.0); HEMATOCRIT 50.4 % (36.0-47.0); HEMOGLOBIN 17.1 g/dl (12.0-15.5); LYMPH # 2.5 10^3/uL (1.5-5.0); LYMPH % 12.2 % (24.0-44.0); MEAN CORPUSCULAR HEMOGLOBIN 28.8 pg (27.0-33.0); MEAN CORPUSCULAR HGB CONC 33.9 g/dl (32.0-36.5); MEAN CORPUSCULAR VOLUME 84.8 fl (80.0-96.0); MONO # 0.9 10^3/uL (0.0-0.8); MONO % 4.1 % (2.0-8.0); NEUTROPHILS % 82.8 % (36.0-66.0); PLATELET COUNT, AUTOMATED 416 10^3/uL (150-450); RED BLOOD COUNT 5.94 10^6/uL (4.00-5.40); WHITE BLOOD COUNT 20.5 10^3/uL (4.0-10.0)
[2024-12-15 17:36] LABS: LIPASE 32 U/L (12-53)
[2024-12-15 17:38] LABS: ALBUMIN 4.5 G/DL (3.2-5.2); ALKALINE PHOSPHATASE 119 U/L (35-104); ALT/SGPT 86 U/L (7.0-40); AST/SGOT 86 U/L (<34); BILIRUBIN,DIRECT 0.2 MG/DL (<0.4); BILIRUBIN,TOTAL 0.5 MG/DL (0.3-1.2); BLOOD UREA NITROGEN 7 MG/DL (9-23); CARBON DIOXIDE LEVEL 18 MMOL/L (20-31); CHLORIDE LEVEL 107 MMOL/L (98-107); CREATININE FOR GFR 0.77 MG/DL (0.55-1.30); GLOMERULAR FILTRATION RATE > 60.0 (>60); GLUCOSE, FASTING 150 MG/DL (60-100); POTASSIUM SERUM 4.3 MMOL/L (3.5-5.1); SODIUM LEVEL 142 MMOL/L (136-145); TOTAL PROTEIN 8.5 G/DL (5.7-8.2)
[2024-12-15 17:39] LABS: HCG, SERUM QUALITATIVE NEGATIVE (NEGATIVE)
[2024-12-15] MEDS: NS (Normal Saline) 0.9% 1,000 ML IV ONE (17:41)
[2024-12-15] MEDS: PROMETHAZINE 25MG/ML 1ML VIAL IV ONE (17:41)
[2024-12-15] MEDS: HALOPERIDOL LACTATE 5MG/ML VIAL IV ONE (18:24)
[2024-12-15] MEDS: NS 0.9% IV ONE (19:06)
[2024-12-15] MEDS: [UNRECOGNIZED DRUG - OTHER] IV ONE (19:06)
[2024-12-15 21:56] VITALS: BP 134/76; O2SAT 98
== END 2024-12-15 21:57 | disposition home or self-care (01) ==
LOC: M ED 15:43
DX: F12.188 Cannabis abuse with other cannabis-induced disorder (principal); R11.2 Nausea with vomiting, unspecified; F17.290 Nicotine dependence, other tobacco product, uncomplicated; Z79.899 Other long term (current) drug therapy
CPT/HCPCS: 80048; 80076; 83605; 83690; 84703; 85025; 93005; 96361; 96374; 96375; 99284; J1630; J2550

== ENCOUNTER 2025-05-18 09:13 | Emergency (ER) | payer OTHER ==
[~2025-05-18] VITALS: Ht 165.1 cm; Wt 108.7 kg
[2025-05-18] MEDS ORDERED: PRENTAB7 (09:25)
[2025-05-18] MEDS ORDERED: ACET-1349 PO (09:25)
[2025-05-18 10:59] LABS: KETONE, URINE AUTO RFX 2+ mg/dL (NEGATIVE); LEUKOCYTE ESTERASE UR AUTO RFX 2+ (NEGATIVE); MUCUS, URINE RFX LARGE (NEGATIVE); NITRITE, URINE AUTO RFX NEGATIVE (NEGATIVE); RBC, URINE AUTO RFX 20 /HPF (0-3); SQUAM EPITHELIAL CELL UR AURFX 77 /HPF (0-6); WBC, URINE AUTO RFX TNTC /HPF (0-3)
[2025-05-18 11:55] LABS: BASO # 0.1 10^3/uL (0.0-0.2); BASO % 0.4 % (0.0-1.0); EOS # 0.1 10^3/uL (0.0-0.5); EOS % 0.8 % (0.0-3.0); LYMPH # 2.4 10^3/uL (1.5-5.0); LYMPH % 21.4 % (24.0-44.0); MONO # 0.5 10^3/uL (0.0-0.8); MONO % 4.0 % (2.0-8.0); NEUTROPHILS # 8.3 10^3/uL (1.5-8.5); NEUTROPHILS % 73.1 % (36.0-66.0); PLATELET COUNT, AUTOMATED 242 10^3/uL (150-450)
[2025-05-18] MEDS: diphenhydrAMINE 50 MG/ML VIAL IV ONE (12:02)
[2025-05-18] MEDS: NS (Normal Saline) 0.9% 1,000 ML IV ONE (12:03)
[2025-05-18 12:34] LABS: ALT/SGPT 38 U/L (7.0-40); AST/SGOT 30 U/L (<34); CALCIUM LEVEL 9.3 MG/DL (8.5-10.1); CARBON DIOXIDE LEVEL 23 MMOL/L (20-31); CHLORIDE LEVEL 104 MMOL/L (98-107); CREATININE FOR GFR 0.50 MG/DL (0.55-1.30); GLOMERULAR FILTRATION RATE > 90.0 (>60); MAGNESIUM LEVEL 2.1 MG/DL (1.8-2.4); POTASSIUM SERUM 3.3 MMOL/L (3.5-5.1); SODIUM LEVEL 140 MMOL/L (136-145)
[2025-05-18] MEDS: PROMETHAZINE 25MG/ML 1ML VIAL IV ONE (14:21)
[2025-05-18 16:07] VITALS: BP 106/53; TEMP 98.2; O2SAT 96
[2025-05-18] MEDS ORDERED: PROM12.56 PO (16:29)
[2025-05-18] MEDS ORDERED: NITR100C3 PO (16:32)
== END 2025-05-18 16:42 | disposition home or self-care (01) ==
LOC: M ED 09:13
DX: O21.0 Mild hyperemesis gravidarum (principal); O99.342 Other mental disorders complicating pregnancy, second trimester; O23.12 Infections of bladder in pregnancy, second trimester; F41.9 Anxiety disorder, unspecified; Z3A.14 14 weeks gestation of pregnancy
CPT/HCPCS: 80048; 80076; 81001; 83690; 83735; 85025; 87086; 96361; 96374; 96375; 99284; J1200; J2060; J2550; J2765

== ENCOUNTER 2025-07-14 14:29 | Outpatient (CLI) | payer OTHER ==
[~2025-07-14] VITALS: Ht 165.1 cm; Wt 103.4 kg
[~2025-07-14 14:29] MED LIST changes: +ACET-1349 PO; -IBUP-1022 PO; +IBUP600T42 PO; +NITR100C3 PO; +PRENTAB7; +PROM12.56 PO
[2025-07-14 15:00] VITALS: O2SAT 95
[2025-07-14 15:01] VITALS: BP 101/62; O2SAT 94
[2025-07-14 15:02] VITALS: O2SAT 96
[2025-07-14] MEDS ORDERED: HYDR-3363 PO (15:10)
[2025-07-14] MEDS ORDERED: HOME MED LIST COMPLETE! XX SCH (15:20)
[2025-07-14] MEDS: ACETAMINOPHEN 500 MG TAB PO ONE (15:28)
[2025-07-14] MEDS: LR 1,000 ML IV ONE (15:50)
[2025-07-14 16:03] LABS: PLATELET COUNT, AUTOMATED 202 10^3/uL (150-450)
[2025-07-14] MEDS: ONDANSETRON 4MG 2ML VIAL IV ONE (16:06)
[2025-07-14 16:40] LABS: ALT/SGPT 17 U/L (7.0-40); AST/SGOT 21 U/L (<34); CALCIUM LEVEL 8.3 MG/DL (8.5-10.1); CARBON DIOXIDE LEVEL 22 MMOL/L (20-31); CHLORIDE LEVEL 104 MMOL/L (98-107); CREATININE FOR GFR 0.40 MG/DL (0.55-1.30); GLOMERULAR FILTRATION RATE > 90.0 (>60); POTASSIUM SERUM 3.7 MMOL/L (3.5-5.1); SODIUM LEVEL 137 MMOL/L (136-145)
[2025-07-14] MEDS: METOCLOPRAMIDE 10 MG TAB PO ONE (17:29)
[2025-07-14 17:33] VITALS: O2SAT 97
[2025-07-14 17:34] VITALS: BP 109/61
== END 2025-07-14 17:50 | disposition home or self-care (01) ==
LOC: M LDO 14:29
PROVIDERS: ATTEND Advanced Practice Midwife
DX: O21.8 Other vomiting complicating pregnancy (principal); O26.892 Other specified pregnancy related conditions, second trimester; R51.9 Headache, unspecified; Z3A.22 22 weeks gestation of pregnancy
CPT/HCPCS: 59025; 80053; 85027; G0463; J2405

== ENCOUNTER 2025-07-16 04:55 | Outpatient (CLI) | payer OTHER ==
[~2025-07-16] VITALS: Ht 165.1 cm; Wt 102.4 kg
[2025-07-16 05:29] VITALS: BP 89/54
[2025-07-16 05:43] VITALS: BP 91/58
[2025-07-16] MEDS ORDERED: METR-265 PO (05:58)
[2025-07-16] MEDS: LR 1,000 ML IV ONE (06:12)
[2025-07-16] MEDS: ACETAMINOPHEN 500 MG TAB PO ONE (06:19)
[2025-07-16] MEDS ORDERED: HOME MED LIST COMPLETE! XX SCH (06:35)
[2025-07-16 06:45] LABS: KETONE, URINE AUTO RFX 1+ mg/dL (NEGATIVE); MUCUS, URINE RFX SMALL (NEGATIVE); NITRITE, URINE AUTO RFX NEGATIVE (NEGATIVE); RBC, URINE AUTO RFX 3 /HPF (0-3); SQUAM EPITHELIAL CELL UR AURFX 12 /HPF (0-6)
[2025-07-16 06:46] LABS: LEUKOCYTE ESTERASE UR AUTO RFX 1+ (NEGATIVE); WBC, URINE AUTO RFX 13 /HPF (0-3)
[2025-07-16] MEDS: METOCLOPRAMIDE 10 MG TAB PO ONE (07:38)
[2025-07-16 07:56] VITALS: BP 104/50
[2025-07-16 10:16] VITALS: BP 103/67
== END 2025-07-16 11:36 | disposition home or self-care (01) ==
LOC: M LDO 04:55
PROVIDERS: ATTEND Student in an Organized Health Care Education/Training Program
DX: O23.592 Infection of other part of genital tract in pregnancy, second trimester (principal); O26.892 Other specified pregnancy related conditions, second trimester; R51.9 Headache, unspecified; Z3A.22 22 weeks gestation of pregnancy
CPT/HCPCS: 59025; 81001; 87088; G0463

== ENCOUNTER 2025-09-01 12:05 | Emergency (ER) | payer OTHER ==
[~2025-09-01] VITALS: Ht 165.1 cm; Wt 100.9 kg
[~2025-09-01 12:05] MED LIST changes: +METR-265 PO
[2025-09-01 12:39] LABS: BASO # 0.0 10^3/uL (0.0-0.2); BASO % 0.4 % (0.0-1.0); EOS # 0.3 10^3/uL (0.0-0.5); EOS % 2.8 % (0.0-3.0); LYMPH # 2.3 10^3/uL (1.5-5.0); LYMPH % 22.1 % (24.0-44.0); MONO # 0.5 10^3/uL (0.0-0.8); MONO % 5.0 % (2.0-8.0); NEUTROPHILS # 7.2 10^3/uL (1.5-8.5); NEUTROPHILS % 69.3 % (36.0-66.0); PLATELET COUNT, AUTOMATED 343 10^3/uL (150-450)
[2025-09-01] MEDS ORDERED: ISOVUE-370 76% 100 ML VIAL As Ordered ONE (13:00)
[2025-09-01 13:54] LABS: ALT/SGPT 22 U/L (7.0-40); AST/SGOT 37 U/L (<34); CALCIUM LEVEL 8.9 MG/DL (8.5-10.1); CARBON DIOXIDE LEVEL 18 MMOL/L (20-31); CHLORIDE LEVEL 106 MMOL/L (98-107); CREATININE FOR GFR 0.51 MG/DL (0.55-1.30); GLOMERULAR FILTRATION RATE > 90.0 (>60); MAGNESIUM LEVEL 1.9 MG/DL (1.8-2.4); POTASSIUM SERUM 3.6 MMOL/L (3.5-5.1); SODIUM LEVEL 141 MMOL/L (136-145)
[2025-09-01] MEDS ORDERED: IBUP-359 PO (14:24)
[2025-09-01] MEDS ORDERED: SERT25TA85 PO (14:24)
[2025-09-01] MEDS ORDERED: ACET-683 PO (14:24)
[2025-09-01] MEDS ORDERED: ONDA-83 PO (14:24)
[2025-09-01] MEDS ORDERED: METR-265 PO (14:24)
[2025-09-01] MEDS ORDERED: HYDR1TAB33 PO (14:24)
[2025-09-01] MEDS ORDERED: BUSP5TA PO (14:24)
[2025-09-01] MEDS ORDERED: OXYC-517 PO (14:24)
[2025-09-01] MEDS ORDERED: GNP28TAB2 PO (14:24)
[2025-09-01 14:29] LABS: INR 0.93
[2025-09-01] MEDS ORDERED: HOME MED LIST COMPLETE! XX SCH (14:30)
[2025-09-01 15:06] VITALS: O2SAT 100
[2025-09-01 15:15] VITALS: BP 138/65; TEMP 98.9
== END 2025-09-01 15:38 | disposition home or self-care (01) ==
LOC: M ED 12:05
DX: F43.0 Acute stress reaction (principal); R00.0 Tachycardia, unspecified; F32.A Depression, unspecified; F41.9 Anxiety disorder, unspecified; Z90.49 Acquired absence of other specified parts of digestive tract; F17.290 Nicotine dependence, other tobacco product, uncomplicated; Z79.899 Other long term (current) drug therapy
CPT/HCPCS: 36415; 71045; 71275; 80047; 80048; 80076; 83735; 84550; 85025; 85384; 85610; 85730; 86850; 86900; 86901; 93005; 93041; 94760; 99285; Q9967

== ENCOUNTER 2025-09-23 08:47 | Emergency (ER) | payer OTHER ==
[~2025-09-23] VITALS: Ht 165.1 cm; Wt 98.8 kg
[~2025-09-23 08:47] MED LIST changes: +ACET-683 PO; +GNP28TAB2 PO; +HYDR1TAB33 PO; +IBUP-359 PO; +ONDA-83 PO; +OXYC-517 PO; +SERT25TA85 PO
[2025-09-23] MEDS: PIPERACILLIN/TAZOBACTAM SOD 4.5 GM in DEXTROSE 5% (D5W) ADV/MINI-BAG 50 ML IV ONE (09:30)
[2025-09-23 09:54] LABS: BASO # 0.1 10^3/uL (0.0-0.2); BASO % 0.4 % (0.0-1.0); EOS # 0.4 10^3/uL (0.0-0.5); EOS % 2.3 % (0.0-3.0); LYMPH # 2.1 10^3/uL (1.5-5.0); LYMPH % 13.8 % (24.0-44.0); MONO # 0.5 10^3/uL (0.0-0.8); MONO % 3.6 % (2.0-8.0); NEUTROPHILS # 11.9 10^3/uL (1.5-8.5); NEUTROPHILS % 79.6 % (36.0-66.0); PLATELET COUNT, AUTOMATED 344 10^3/uL (150-450)
[2025-09-23] MEDS: ONDANSETRON 4MG/2ML VIAL IV ONE (10:02)
[2025-09-23] MEDS: MORPHINE 4 MG/ML 1 ML VIAL IV PRN (10:02)
[2025-09-23] MEDS ORDERED: MEDR150I13 IM (10:06)
[2025-09-23] MEDS ORDERED: CLON0.25 PO (10:06)
[2025-09-23] MEDS ORDERED: HOME MED LIST COMPLETE! XX SCH (10:10)
[2025-09-23 10:26] LABS: C REACTIVE PROTEIN QUANTITATIV 3.35 MG/DL (<1.0)
[2025-09-23 10:27] LABS: ALT/SGPT 21 U/L (7.0-40); AST/SGOT 25 U/L (<34); CALCIUM LEVEL 9.2 MG/DL (8.5-10.1); CARBON DIOXIDE LEVEL 26 MMOL/L (20-31); CHLORIDE LEVEL 104 MMOL/L (98-107); CREATININE FOR GFR 0.61 MG/DL (0.55-1.30); GLOMERULAR FILTRATION RATE > 90.0 (>60); POTASSIUM SERUM 4.4 MMOL/L (3.5-5.1); SODIUM LEVEL 139 MMOL/L (136-145)
[2025-09-23] MEDS ORDERED: ISOVUE-370 76% 100 ML VIAL As Ordered ONE (10:31)
[2025-09-23] MEDS: VANCOMYCIN HCL 1,000 MG, VIAL MATE ADAPTER 1 EACH in NS 250 ML IV ONE (11:19)
[2025-09-23] MEDS ORDERED: PIPERACILLIN/TAZOBACTAM SOD 4.5 GM in DEXTROSE 5% (D5W) ADV/MINI-BAG 50 ML IV ONE (11:50)
[2025-09-23 14:15] VITALS: BP 121/68; TEMP 97.8; O2SAT 99
[2025-09-24] MEDS ORDERED: ZOLO100T PO (10:04)
[2025-09-24] MEDS ORDERED: CEFA500C2 PO (10:04)
== END 2025-09-23 14:26 | disposition home or self-care (01) ==
LOC: M ED 08:47
DX: O86.00 Infection of obstetric surgical wound, unspecified (principal); K65.1 Peritoneal abscess; F32.A Depression, unspecified; F41.9 Anxiety disorder, unspecified; Z90.49 Acquired absence of other specified parts of digestive tract; J98.11 Atelectasis; J90 Pleural effusion, not elsewhere classified; K76.89 Other specified diseases of liver; Z79.899 Other long term (current) drug therapy
CPT/HCPCS: 74177; 80053; 83605; 84145; 85025; 85652; 86140; 87040; 87070; 87077; 87186; 96365; 96366; 96367; 96375; 96376; 99284; J2405; J2543; J3373; Q9967

== ENCOUNTER 2025-09-24 05:28 | Observation (INO) | payer OTHER ==
[~2025-09-24] VITALS: Ht 167.6 cm; Wt 99.8 kg
[~2025-09-24 05:28] MED LIST changes: +CLON0.25 PO; +MEDR150I13 IM
[2025-09-24] MEDS: KETOROLAC 30 MG/ML 1 ML VIAL IV ONE (06:44)
[2025-09-24] MEDS: NS (Normal Saline) 0.9% 1,000 ML IV ONE (06:44)
[2025-09-24] MEDS: ACETAMINOPHEN *IV* 1,000 MG in IV 1 EA IV ONE (06:45)
[2025-09-24 06:51] LABS: BASO # 0.1 10^3/uL (0.0-0.2); BASO % 0.3 % (0.0-1.0); EOS # 0.4 10^3/uL (0.0-0.5); EOS % 2.8 % (0.0-3.0); LYMPH # 1.5 10^3/uL (1.5-5.0); LYMPH % 10.6 % (24.0-44.0); MONO # 0.7 10^3/uL (0.0-0.8); MONO % 4.9 % (2.0-8.0); NEUTROPHILS # 11.8 10^3/uL (1.5-8.5); NEUTROPHILS % 81.0 % (36.0-66.0); PLATELET COUNT, AUTOMATED 298 10^3/uL (150-450)
[2025-09-24 07:17] LABS: CALCIUM LEVEL 8.7 MG/DL (8.5-10.1); CARBON DIOXIDE LEVEL 26 MMOL/L (20-31); CHLORIDE LEVEL 105 MMOL/L (98-107); CK-MB VALUE MASS < 1.0 NG/ML (<3.6); CPK CREATINE PHOSPHOKINASE < 15 U/L (34-145); CREATININE FOR GFR 0.60 MG/DL (0.55-1.30); GLOMERULAR FILTRATION RATE > 90.0 (>60); MAGNESIUM LEVEL 2.2 MG/DL (1.8-2.4); POTASSIUM SERUM 4.3 MMOL/L (3.5-5.1); SODIUM LEVEL 140 MMOL/L (136-145)
[2025-09-24] MEDS ORDERED: ISOVUE-370 76% 100 ML VIAL As Ordered ONE (07:35)
[2025-09-24] MEDS: MORPHINE 4 MG/ML 1 ML VIAL IV PRN ×2 (07:42→11:00)
[2025-09-24] MEDS ORDERED: CEFDINIR 300 MG CAP PO SCH (09:00)
[2025-09-24] MEDS: SERTRALINE HCL 50 MG TAB PO SCH (09:00)
[2025-09-24] MEDS: ONDANSETRON 4MG/2ML VIAL IV ONE (09:28)
[2025-09-24] MEDS ORDERED: ZOLO100T PO (10:04)
[2025-09-24] MEDS ORDERED: CEFA500C2 PO (10:04)
[2025-09-24] MEDS ORDERED: HOME MED LIST COMPLETE! XX SCH (10:05)
[2025-09-24 10:17] LABS: C REACTIVE PROTEIN QUANTITATIV 5.23 MG/DL (<1.0)
[2025-09-24 10:21] LABS: INR 0.98
[2025-09-24] MEDS: PANTOPRAZOLE 40MG VIAL IV ONE (10:30)
[2025-09-24 10:39] LABS: PLATELET COUNT, AUTOMATED 274 10^3/uL (150-450)
[2025-09-24] MEDS: ONDANSETRON 4MG/2ML VIAL IV PRN (10:59)
[2025-09-24] MEDS: HEPARIN SOD 5000 UNITS/ML 1 ML VIAL/SYRINGE IV ONE (11:01)
[2025-09-24] MEDS: HEPARIN DRIP 25,000 UNITS in IV 1 EA IV SCH (11:03)
[2025-09-24 11:12] LABS: ALT/SGPT 23 U/L (7.0-40); AST/SGOT 22 U/L (<34)
[2025-09-24] MEDS: clonazePAM 0.5 MG TAB PO PRN (11:51)
[2025-09-24] MEDS: NS (Normal Saline) 0.9% 1,000 ML IV SCH (11:52)
[2025-09-24] MEDS: cefTRIAXone SOD 1 GM in DEXTROSE 5% (D5W) ADV/MINI-BAG 50 ML IV ONE (11:52)
[2025-09-24 12:07] LABS: DRVV SCREEN 45.0 SECONDS
[2025-09-24] MEDS: PANTOPRAZOLE 40MG VIAL IV SCH (12:11)
[2025-09-24 12:15] LABS: PTT LUPUS TYPE ANTICOAG SCREEN 1.19 (0-1.20)
[2025-09-24 12:31] LABS: HEPATITIS C VIRUS ABY INDEX 0.02 INDEX (<0.8)
[2025-09-24] MEDS: metroNIDAZOLE 500 MG in IV 1 EA IV SCH (13:11)
[2025-09-24] MEDS: ACETAMINOPHEN 500 MG TAB PO SCH (13:12)
[2025-09-24] MEDS: KETOROLAC 30 MG/ML 1 ML VIAL IV PRN (14:56)
[2025-09-24 21:40] VITALS: BP 170/79; TEMP 97.5; O2SAT 98
[2025-09-24 21:57] VITALS: BP 132/74
[2025-09-24 23:56] VITALS: BP 113/61; TEMP 97.7; O2SAT 99
[2025-09-25 04:27] LABS: PLATELET COUNT, AUTOMATED 237 10^3/uL (150-450)
[2025-09-25 04:31] VITALS: BP 132/75; TEMP 97.7; O2SAT 97
[2025-09-25 04:46] LABS: ALT/SGPT 27 U/L (7.0-40); AST/SGOT 27 U/L (<34); CALCIUM LEVEL 8.3 MG/DL (8.5-10.1); CARBON DIOXIDE LEVEL 25 MMOL/L (20-31); CHLORIDE LEVEL 109 MMOL/L (98-107); CREATININE FOR GFR 0.53 MG/DL (0.55-1.30); GLOMERULAR FILTRATION RATE > 90.0 (>60); POTASSIUM SERUM 3.8 MMOL/L (3.5-5.1); SODIUM LEVEL 143 MMOL/L (136-145)
[2025-09-25 06:37] VITALS: BP 111/56; TEMP 97.6; O2SAT 99
[2025-09-25] MEDS: cefTRIAXone SOD 1 GM in DEXTROSE 5% (D5W) ADV/MINI-BAG 50 ML IV SCH (09:47)
[2025-09-25] MEDS: APIXABAN 5 MG TAB PO SCH (09:48)
[2025-09-25] MEDS ORDERED: ONDA-282 PO (11:22)
[2025-09-25 11:23] VITALS: BP 131/67; TEMP 98.1; O2SAT 95
[2025-09-25] MEDS ORDERED: METR-265 PO (11:23)
[2025-09-25] MEDS ORDERED: ELIQ5TAB PO (11:24)
[2025-09-25] MEDS ORDERED: HYDR-3713 PO (11:32)
[2025-09-26 11:47] LABS: CARDIOLIPIN IGA ANTIBODY < 2.0 APL-U/mL (<20.0); CARDIOLIPIN IGG ANTIBODY < 2.0 GPL-U/mL (<20.0); CARDIOLIPIN IGM ANTIBODY < 2.0 MPL-U/mL (<20.0)
[2025-09-28 00:33] LABS: PROTEIN C FUNCTIONAL ACTIVITY 138 % normal (70-180); PROTEIN S FUNCTIONAL ACTIVITY 57 % normal (60-140)
[2025-09-28 20:07] LABS: PHOSPHOLIPIDS LEVEL 210 mg/dL (151-264)
[2025-09-29 15:33] LABS: FACTOR II PROTHROMBIN GENE AN POSITIVE
[2025-09-29 23:08] LABS: ANTI THROMBIN 3 ANTIGEN IMMUNO 114 % normal (80-120); ANTI THROMBIN 3 FUNCT ACTIVITY 129 % normal (80-135)
[2025-09-30 14:04] LABS: FACTOR V LEIDEN FOR MEDINET POSITIVE
[2025-10-02] MEDS ORDERED: APIXABAN 5 MG TAB PO SCH (09:00)
== END 2025-09-25 12:55 | disposition home or self-care (01) ==
LOC: M ED 05:28 → EDBD 05:28 → M ED INP 05:29 → M PCU 21:41
PROVIDERS: ADMIT Internal Medicine; ATTEND Internal Medicine
DX: I26.99 Other pulmonary embolism without acute cor pulmonale (principal); K76.89 Other specified diseases of liver; F41.9 Anxiety disorder, unspecified; L76.34 Postprocedural seroma of skin and subcutaneous tissue following other procedure; Z79.899 Other long term (current) drug therapy
CPT/HCPCS: 36415; 71275; 76705; 80047; 80048; 80053; 80074; 80076; 81240; 82550; 82553; 83735; 83880; 84145; 84311; 84484; 85025; 85027; 85300; 85301; 85303; 85305; 85610; 85730; 86140; 86147; 87040; 93005; 93970; 96361; 96365; 96366; 96367; 96375; 96376; 99285; J0134; J0696; J1836; J1885; J2060; J2405; J2470; J2550; Q9967

== ENCOUNTER 2025-09-25 22:30 | Emergency (ER) | payer OTHER ==
[~2025-09-25] VITALS: Ht 165.1 cm; Wt 99.1 kg
[~2025-09-25 22:30] MED LIST changes: +CEFA500C2 PO; +ELIQ5TAB PO; +HYDR-3713 PO; +ZOLO100T PO
[2025-09-25 22:32] VITALS: BP 145/81; TEMP 97.8; O2SAT 96
== END 2025-09-25 22:45 | disposition left against medical advice (07) ==
LOC: M ED 22:30
DX: Z53.21 Procedure and treatment not carried out due to patient leaving prior to being seen by health care provider (principal)